=== PATIENT | female | born 1945 | race Caucasian/White ===

== ENCOUNTER 2019-08-04 08:32 | Day surgery (SDC) | payer MEDICARE ==
--- NOTE | 2019-08-04 07:46 | HP ---
DATE OF SURGERY: 08/04/2019 HISTORY OF PRESENT ILLNESS: The patient is a 73 year-old with no bloody stools, no change in bowel movements. She has history of polyps. Family history negative for colon cancer. She is in need of follow up screening colonoscopy. PAST MEDICAL HISTORY: Diabetes. History of polyps in the past. Hyperlipidemia and hypertension. PAST SURGICAL HISTORY: Back surgery in the past. Colonoscopy in the past. MEDICATIONS: Includes omega-3 fish oil, metoprolol, multivitamin, Metformin, lovastatin, lisinopril, Victoza, Levemir, insulin, gabapentin, Furosemide, calcium with vitamin D, aspirin, amlodipine. ALLERGIES: NKDA. FAMILY HISTORY: Negative in regards to this problem. SOCIAL HISTORY: Denies alcohol abuse. REVIEW OF SYSTEMS: Fourteen systems reviewed pertinent for as noted above. No chest pain or palpitations. PHYSICAL EXAMINATION: GENERAL: No acute distress. HEENT: Sclerae nonicteric. NECK: No JVD. CHEST: Equal excursion, nonlabored breathing. CVS: Regular rate and rhythm. ABDOMEN: Soft. No peritoneal signs. EXTREMITIES: No significant edema. NEURO: Alert, oriented, moving extremities symmetrically. No gross motor deficits noted. RECTAL: Deferred timed to endoscopy exam. IMPRESSION: History of polyps, need for follow up screening colonoscopy. I feel she is a candidate. Shown the risk sheet and explained the procedure in detail but not limited to bleeding or infection, risk of bowel injury or perforation possibly requiring open procedure, risk of missed or nondiagnosis or incomplete exam possibly requiring barium enema, other studies or procedures, general risk of anesthesia or sedation, risk of bowel prep but not limited to, will proceed with outpatient follow up screening colonoscopy.
[2019-08-04] MEDS ORDERED: Lactated Ringers 1,000 ML IV ONE (08:46)
[2019-08-04] MEDS ORDERED: Lactated Ringers 1,000 ML IV SCH (09:00)
[2019-08-04] MEDS ORDERED: Ketamine HCl 50 MG/ML ONE (10:14)
[2019-08-04] MEDS ORDERED: DIPRIVAN 200 MG/20 ML IV ONE ×2 (10:14→10:32)
[2019-08-04 11:44] VITALS: BP 151/71; PULSE 64; O2SAT 92
--- NOTE | 2019-08-05 09:20 | OP ---
SURGERY DATE/TIME: 08/04/2019 1015 PREOPERATIVE DIAGNOSIS: History of polyps, need for follow up screening colonoscopy. POSTOPERATIVE DIAGNOSES: 1) Multiple colon polyps. 2) Moderate to severe diverticulosis. 3) Small internal and external hemorrhoids. 4) Adequate prep. PROCEDURES: Colonoscopy. SURGEON: Dr. Isidoro Duggan. ANESTHESIA: MAC. ESTIMATED BLOOD LOSS: Minimal. INDICATIONS: As noted above. Risks and benefits explained in detail but not limited to and consent obtained. DESCRIPTION OF PROCEDURE AND FINDINGS: The patient is taken to the endoscopy room. MAC anesthesia introduced. After official time out and no disagreement with planned procedure, digital rectal exam did not reveal any rectal mass. She did have some small internal and external hemorrhoids. Video colonoscope inserted and passed up through the colon around to the transverse colon, ascending colon and cecum. Appendiceal orifice and valve well visualized. Overall the prep was only adequate. There were several areas of solid stool chunks and some semisolid, liquidy stool which limited exam for very tiny lesions. I thought it was adequate not to miss any large lesions or obstructing mass. The scope was slowly and carefully withdrawn over the next 16 minutes. There were three to four polyps in the ascending colon. Two or three were removed with hot biopsy forceps and one was removed with hot snare polypectomy with brief bursts of cautery. The scope then pulled to the transverse colon. Another three polyps removed with hot snare polypectomy with brief bursts of cautery. These polyps were all in the range from 2 to 4 mm. Three polyps were removed in the transverse colon and another one was removed with hot snare in the descending colon. Otherwise she had diverticulosis most concentrated in the left colon. She had some small internal and external hemorrhoids. There were no signs of any large polyps, masses or obstructing lesions. The prep overall was adequate. The patient tolerated the procedure well. There were no immediate complications. Findings discussed with the family out in the waiting area.
== END 2019-08-04 11:54 | disposition home or self-care (01) ==
LOC: SDC 08:32
PROVIDERS: ATTEND Surgery
DX: Z12.11 Encounter for screening for malignant neoplasm of colon (principal); D12.2 Benign neoplasm of ascending colon; D12.4 Benign neoplasm of descending colon; D12.3 Benign neoplasm of transverse colon; K57.30 Diverticulosis of large intestine without perforation or abscess without bleeding; K64.4 Residual hemorrhoidal skin tags; K64.8 Other hemorrhoids; Z86.010 Personal history of colon polyps; E11.9 Type 2 diabetes mellitus without complications; I10 Essential (primary) hypertension; E78.5 Hyperlipidemia, unspecified; Z79.899 Other long term (current) drug therapy
CPT/HCPCS: 82962; 88305; 99100; J2704